=== PATIENT | male | born 1985 | race Caucasian/White ===

== ENCOUNTER 2017-06-27 19:06 | Emergency (ER) | payer BC, OTHER ==
[~2017-06-27] VITALS: Ht 167.6 cm; Wt 61.4 kg
[~2017-06-27 19:06] MED LIST: ATEN50TA8 PO; CLXOPS3 OP; LRT5 PO
[2017-06-27 19:12] VITALS: TEMP 36.3; Ht 167.6 cm; Wt 61.4 kg
[2017-06-27 20:44] LABS: BASO % 0.2 %; BASO ABS # 0.01 K/uL (0-0.2); EOS % 3.4 %; EOS ABS # 0.15 K/uL (0-0.5); HEMATOCRIT 41.5 % (42-52); HEMOGLOBIN 15.4 g/dL (14.0-18.0); IG# 0.01 K/uL (0.00-0.02); LYMPH % 28.6 %; LYMPH ABS # 1.28 K/uL (1.2-3.4); MEAN CELL VOLUME 87.7 fL (80-100); MEAN CORPUSCULAR HEMOGLOBIN 32.6 pg (25-34); MEAN CORPUSCULAR HGB CONC 37.1 g/dl (32-36); MEAN PLATELET VOLUME 9.5 fL (7.4-10.4); MONO % 11.6 %; MONO ABS # 0.52 K/uL (0.11-0.59); PLATELET COUNT 148 K/uL (130-400); RED CELL DISTRIBUTION WIDTH CV 12.1 % (11.5-14.5); RED CELL DISTRIBUTION WIDTH SD 39.1 fL (36.4-46.3); WHITE BLOOD COUNT 4.47 K/uL (4.8-10.8)
[2017-06-27 21:01] LABS: ALBUMIN 4.1 gm/dl (3.4-5.0); CALCIUM 9.3 mg/dl (8.5-10.1); CREATININE 0.95 mg/dl (0.60-1.40); POTASSIUM 3.6 mmol/L (3.5-5.1)
--- NOTE | 2017-06-27 21:04 | DIAGNOSTIC IMAGING REPORT ---
CHEST 2 VIEWS ROUTINE HISTORY: Cough. COMPARISON: None. FINDINGS: The lungs are clear. The heart is normal in size. Lobular appearance to the bilateral tyree. No pleural effusions. No pneumothorax. IMPRESSION: Lobular appearance the bilateral tyree likely representing lymphadenopathy. Follow-up nonemergent chest CT can be used for confirmation. Electronically signed by: Vance Granado M.D. 06/27/2017 9:03 PM Dictated Date/Time: 06/27/2017 9:01 PM
[2017-06-27 21:12] LABS: TOTAL PROTEIN 7.8 gm/dl (6.4-8.2)
[2017-06-27 21:17] LABS: INFLUENZA B ANTIGEN Neg for Influ B (NEG)
[2017-06-27] MEDS ORDERED: ALPR0.5T PO (21:29)
[2017-06-27 22:14] VITALS: BP 117/73; PULSE 61; O2SAT 100
--- NOTE | 2017-06-27 23:46 | EMERGENCY ROOM VISIT NOTE ---
History Report prepared by Britta: Candace Walker Under the Supervision of: Dr. Jose Daniel Ceron M.D. First contact with patient: 20:02 Chief Complaint: NEURO SYMPTOMS Stated Complaint: SICK, NUMBNESS TO LEGS, HANDS, FEET History of Present Illness The patient is a 32 year old male who presents to the Emergency Room with complaints of persistent numbness in his arms and legs starting 4 days ago. The numbness started in his feet and spread up his legs. The numbness in his arms started in his fingers a day later and has spread up into his shoulders. He feels like his arms and legs are "" until he gets up and starts moving around. He says the numbness feels like when your foot falls asleep. It is more tingling than loss of sensation. His arms and legs feel stiff. He has had this stiffness intermittently since he had Lyme disease in 2012. He reports generalized weakness but no focal weakness. He is able to walk, but feels lightheaded. He has some lower back pain which is not new. He denies any neck pain. He denies any history of hypertension, diabetes, or other medical problems. He spoke to his PCP about the numbness, but he did not say anything about it. One week ago, he had a fever, cough, and headache. He went to [facility] and was diagnosed with a sinus infection. He had a chest X-ray at that time which was normal. He still has a cough and feels congested. He does not have any headache or fever now. He also had some sharp abdominal pain and vomiting 1 week ago which has resolved. Source of History: patient Onset: 4 days ago Position: arm (bilateral), leg (bilateral) Quality: tingling, numbness Timing: other (persistent) Modifying Factors (Relieving): other (moving around) Associated Symptoms: + cough, + weakness, No neck pain Note: Pt reports lightheadedness. Review of Systems See HPI for pertinent positives & negatives. A total of 10 systems reviewed and were otherwise negative. Past Medical & Surgical Medical Problems: (1) Lyme disease Family History Cancer Diabetes mellitus Heart disease Hypertension Lung disease Social History Smoking Status: Never Smoker Marital Status: single Occupation Status: employed Current/Historical Medications Scheduled PRN Alprazolam (Xanax), 0.5 MG PO UD PRN for Anxiety Allergies Coded Allergies: No Known Allergies (Unverified Allergy, NONE, 03/04/09) Physical Exam Vital Signs Date Time Temp Pulse Resp B/P (MAP) Pulse Ox O2 Delivery O2 Flow Rate FiO2 06/27/17 22:14 61 16 117/73 100 06/27/17 21:32 61 18 130/80 100 Room Air 06/27/17 19:12 36.3 86 18 122/86 100 Room Air Physical Exam Constitutional: Vital signs reviewed. Eyes: Pupils are equal round reactive to light. Conjunctiva are noninjected. ENT: Pharynx is clear without erythema or exudate. Mucous membranes are moist. Neck supple without meningeal signs. Respiratory: Clear to auscultation bilaterally. Breath sounds are equal bilaterally. Cardiovascular: Regular rate and rhythm. No rubs or gallops. GI: Soft, nondistended and nontender. Bowel sounds are present. Musculoskeletal: No peripheral edema. No lower extremity tenderness. No midline tenderness to the cervical, thoracic, or lumbosacral spine. Integumentary: No cyanosis. Neurological: The patient is awake and alert. Cranial nerves II-XII are intact. Motor is 5 out of 5 all extremities. Sensation is intact to light touch all extremities. Normal speech. No pronator drift. Psychiatric: Normal affect. Medical Decision & Procedures ER Provider Diagnostic Interpretation: X-ray results as stated below per interpretation by me and the radiologist: CHEST 2 VIEWS ROUTINE HISTORY: Cough. COMPARISON: None. FINDINGS: The lungs are clear. The heart is normal in size. Lobular appearance to the bilateral tyree. No pleural effusions. No pneumothorax. IMPRESSION: Lobular appearance the bilateral tyree likely representing lymphadenopathy. Follow-up nonemergent chest CT can be used for confirmation. Electronically signed by: Vance Granado M.D. 06/27/2017 9:03 PM Dictated Date/Time: 06/27/2017 9:01 PM Laboratory Results 06/27/17 20:25 Red Blood Count 4.73, Mean Corpuscular Volume 87.7, Mean Corpuscular Hemoglobin 32.6, Mean Corpuscular Hemoglobin Concent 37.1, Mean Platelet Volume 9.5, Neutrophils (%) (Auto) 56.0, Lymphocytes (%) (Auto) 28.6, Monocytes (%) (Auto) 11.6, Eosinophils (%) (Auto) 3.4, Basophils (%) (Auto) 0.2, Neutrophils # (Auto ) 2.50, Lymphocytes # (Auto) 1.28, Monocytes # (Auto) 0.52, Eosinophils # (Auto ) 0.15, Basophils # (Auto) 0.01 06/27/17 20:25 Test 06/27/17 20:20 06/27/17 20:25 Influenza Type A Antigen Neg for Influ A (NEG) Influenza Type B Antigen Neg for Influ B (NEG) White Blood Count 4.47 K/uL (4.8-10.8) Red Blood Count 4.73 M/uL (4.7-6.1) Hemoglobin 15.4 g/dL (14.0-18.0) Hematocrit 41.5 % (42-52) Mean Corpuscular Volume 87.7 fL (80-100) Mean Corpuscular Hemoglobin 32.6 pg (25-34) Mean Corpuscular Hemoglobin Concent 37.1 g/dl (32-36) Platelet Count 148 K/uL (130-400) Mean Platelet Volume 9.5 fL (7.4-10.4) Neutrophils (%) (Auto) 56.0 % Lymphocytes (%) (Auto) 28.6 % Monocytes (%) (Auto) 11.6 % Eosinophils (%) (Auto) 3.4 % Basophils (%) (Auto) 0.2 % Neutrophils # (Auto) 2.50 K/uL (1.4-6.5) Lymphocytes # (Auto) 1.28 K/uL (1.2-3.4) Monocytes # (Auto) 0.52 K/uL (0.11-0.59) Eosinophils # (Auto) 0.15 K/uL (0-0.5) Basophils # (Auto) 0.01 K/uL (0-0.2) RDW Standard Deviation 39.1 fL (36.4-46.3) RDW Coefficient of Variation 12.1 % (11.5-14.5) Immature Granulocyte % (Auto) 0.2 % Immature Granulocyte # (Auto) 0.01 K/uL (0.00-0.02) Anion Gap 6.0 mmol/L (3-11) Est Creatinine Clear Calc Drug Dose 98.7 ml/min Estimated GFR () 124.0 Estimated GFR (Non- 107.0 BUN/Creatinine Ratio 16.6 (10-20) Calcium Level 9.3 mg/dl (8.5-10.1) Magnesium Level 1.9 mg/dl (1.8-2.4) Total Bilirubin 0.6 mg/dl (0.2-1) Direct Bilirubin 0.1 mg/dl (0-0.2) Aspartate Amino Transf (AST/SGOT) 26 U/L (15-37) Alanine Aminotransferase (ALT/SGPT) 28 U/L (12-78) Alkaline Phosphatase 44 U/L (45-117) Total Protein 7.8 gm/dl (6.4-8.2) Albumin 4.1 gm/dl (3.4-5.0) Thyroid Stimulating Hormone (TSH) 2.610 uIu/ml (0.300-4.500) Lyme Disease IgG Antibody NEG (NEG) Lyme Disease IgM Antibody NEG (NEG) Laboratory results as reviewed by me. ED Course 2002: The patient was evaluated in room C5. A complete history and physical exam was performed. 2151: Upon reevaluation, the patient was resting comfortably. I discussed tonight's findings with him. I recommended outpatient CT chest. He verbalized agreement of the treatment plan. He was discharged home. Medical Decision This is a 32-year-old male who presents with tingling to his arms and legs with a cough. Differential diagnoses considered include demyelinating disease, paresthesias, neuropathy, spinal cord lesion, metabolic derangement, bronchitis , pneumonia. I did perform a limited focused review of portions of the patient' s old chart on the electronic medical record. The patient has had no recent pertinent visits to this hospital. I did evaluate the patient as noted above. The patient presents with paresthesias to his arms and legs. On examination he has no deficits in either sensation or motor strength. He is neurologically intact. IV access was established. The patient was placed on a continuous bus driver/monitor. I did order and personally review the patient's chest x-ray as described above. He does have some possible hilar lymphadenopathy. I did order and review the patient's blood work as noted in the electronic medical record. He is a very mild leukopenia which may be simply a viral suppression. He has normal electrolytes. Lyme disease and flu testing are both negative. I did discuss the test results with the patient. I did recommend he follow closely with his family doctor for further evaluation and possible referral to neurology. He was advised to get an outpatient CT of his chest to evaluate for this possible lymphadenopathy. He was discharged in good condition. Medication Reconcilliation Current Medication List: was personally reviewed by me Blood Pressure Screening Patient's blood pressure: Normal blood pressure Blood pressure disposition: Did not require urgent referral Impression Primary Impression: Paresthesia Additional Impressions: Cough Lymphadenopathy Scribe Attestation The scribe's documentation has been prepared under my direct and personally reviewed by me in its entirety. I confirm that the note above accurately reflects all work, treatment, procedures, and medical decision making performed by me. Departure Information Dispostion Home / Self-Care Referrals Jeevan Lobo M.D. (PCP) Forms HOME CARE DOCUMENTATION FORM, IMPORTANT VISIT INFORMATION, WORK / SCHOOL INSTRUCTIONS Patient Instructions ED Paraesthesias, My [facility] Additional Instructions You have been examined and treated today on an emergency basis only. This is not a substitute for, or an effort to provide, complete comprehensive medical care. It is impossible to recognize and treat all injuries or illnesses in a single emergency department visit. It is therefore important that you follow up closely with your physician. Call as soon as possible for an appointment. Have your doctor order an outpatient CT scan of your chest to evaluate for possible abnormal lymph nodes in your chest. Return for worsening symptoms or if you develop fever, loss of sensation or weakness on one side of your body, difficulties with your speech or walking, or any other concerning symptoms. Problem Qualifiers
== END 2017-06-27 22:08 | disposition home or self-care (01) ==
LOC: C.EDB 19:08 → C.EDC 22:08
DX: R20.2 Paresthesia of skin (principal); R05 Cough; R59.1 Generalized enlarged lymph nodes; Z86.19 Personal history of other infectious and parasitic diseases; Z80.9 Family history of malignant neoplasm, unspecified; Z83.3 Family history of diabetes mellitus; Z82.49 Family history of ischemic heart disease and other diseases of the circulatory system